=== PATIENT | male | born 1955 | race Hispanic/Latino ===

== ENCOUNTER 2020-12-27 23:44 | Emergency (ER) | payer OTHER, SELFPAY ==
[2020-12-27 23:47] VITALS: BP 146/87; PULSE 97; RESP 18; TEMP 36.3; O2SAT 100
--- NOTE | 2020-12-28 00:28 | ED.GENADULT ---
HPI - General Adult General Chief complaint: Back Pain/Injury Stated complaint: Lower back pain Time Seen by Provider: 12/28/20 00:17 Source: RN notes reviewed History of Present Illness HPI narrative: Patient presents emergency department from home for low back pain. Patient states pain began approximately 10 days ago when he bent over in the shower and felt a twinge in his back states that since that time has had pain in the bilateral lower back that radiates into the bilateral legs he denies any direct trauma or injury he denies any fevers or chills abdominal pain numbness or tingling in the extremities bowel or bladder incontinence or any other symptoms he last took an Aleve at 10 PM tonight and he states he did drive himself to the emergency department. Patient states that this occurred approximately 3 years ago and at that time he improved with diclofenac Related Data Home Medications Medication Instructions Recorded Confirmed lisinopril 25 mg PO DAILY 12/27/20 metformin 500 mg PO BID 12/27/20 Allergies Allergy/AdvReac Type Severity Reaction Status Date / Time No Known Allergies Allergy Verified 12/27/20 23:50 Review of Systems Review of Systems: Narrative: Gen.: Denies fevers or chills ENT: Denies congestion Respiratory: Denies shortness of breath or cough CV: Denies chest pain or palpitations GI: Denies abdominal pain nausea, emesis or diarrhea denies bowel or bladder incontinence Musculoskeletal: See HPI Neuro: Denies numbness, tingling, weakness or focal weakness Skin: Denies rash Except as documented, all other systems reviewed and negative [facility] Past Medical History Medical History (Updated 12/28/20 @ 00:32 by Salvador Grijalva DO) Hypertension Social History Social History (Updated 12/28/20 @ 00:30 by Salvador Grijalva DO) Smoking status: Never smoker Exam Narrative: Exam Narrative: APPEARANCE: No acute distress, nontoxic, resting in bed Eyes: EOMI HEENT: Normocephalic, atraumatic, CV: Regular rate and rhythm without murmur RESPIRATORY: No respiratory distress. Clear to auscultation bilaterally. Abdomen: Soft and nontender, no rebound or guarding MUSCULOSKELETAl: Moves all extremities, no clubbing cyanosis or edema Back: No midline lumbar tenderness to palpation or step-off, tender to palpation over bilateral paravertebral muscles L3-5 , pain increased with forward flexion NEURO: Awake and alert. Following commands, speech normal, no focal deficits, muscle strength 5 out of 5 bilateral lower extremities, bilateral patellar reflex 2+ SKIN:: Warm, dry. Normal Color no rash or lesions Course Course Emergency Course: Discussed with patient results of workup and diagnosis. Discussed need for follow-up with primary care, proper use of medication, and reasons to return to the emergency department. Patient understands and agrees to current treatment plan Vital Signs Vital signs: Vital Signs Temperature 97.3 F L 12/27/20 23:47 Pulse Rate 97 12/27/20 23:47 Respiratory Rate 18 12/27/20 23:47 Blood Pressure 146/87 H 12/27/20 23:47 Pulse Oximetry 100 12/27/20 23:47 Temperature 97.3 F L 12/27/20 23:47 Pulse Rate 97 12/27/20 23:47 Respiratory Rate 18 12/27/20 23:47 Blood Pressure 146/87 H 12/27/20 23:47 Pulse Oximetry 100 12/27/20 23:47 Medical Decision Making MDM Narrative Medical decision making narrative: Patient?s pain is positional and localized to back without signs of cord compression or cauda equina. Normal nuerologic exams. No fever noted and no significant risk factors for osteomyelitis or spinal epidural abscess. No symptoms or signs to suggest pain is referred from abdominal or source. There are no pulsatile masses to exam. Patient ambulates with a steady gait and is felt to be up reasonable candidate for continued outpatient management Vital Signs Vital Signs: Vital Signs Temperature 97.3 F L 12/27/20 23:47 Pulse Rate 97 12/27/20 23
[2020-12-28 00:51] VITALS: BP 144/87; PULSE 92; RESP 16; O2SAT 96
== END 2020-12-28 00:53 | disposition home or self-care (01) ==
PROVIDERS: Emergency Provider Emergency Medicine
DX: M54.5 Low back pain (principal); I10 Essential (primary) hypertension
CPT/HCPCS: 99283

== ENCOUNTER → 2021-01-07 09:30 | Outpatient (CLI) | payer OTHER, SELFPAY ==
--- NOTE | ~2021-01-07 | XR_ITS ---
EXAMINATION: XR lumbar spine 2-3V EXAM DATE: 01/07/2021 10:45 INDICATION: Dorsalgia. Low back pain, right hip pain. Symptoms progressing. TECHNIQUE: Lumber spine frontal, lateral, lateral L5-S1 projections for interpretation. There is no prior study for comparison. FINDINGS: Mild thoracolumbar scoliosis. L5-S1 has moderate disc disease, mild to moderate at the oth er lumbar levels. There is moderate mid and lower lumbar facet arthropathy. Probable few millimeters retrolisthesis L5 on S1. The vertebral bodies are otherwise aligned. Paraspinal soft tissue is unrema rkable. IMPRESSION: 1. Moderate lower lumbar spondylosis. 2. Mild thoracolumbar scoliosis. Reviewed, dictated and finalized at location B. SPECIALIST
--- NOTE | ~2021-01-07 | XR_ITS ---
EXAMINATION: XR hip RT 2V w AP pelvis EXAM DATE: 01/07/2021 10:46 INDICATION: Right hip pain. TECHNIQUE: Right hip frontal standing, crosstable lateral projections for interpretation. Frontal sta nding projection pelvis. There is no prior study for comparison. FINDINGS: Smooth right hip femoral head contour, no radiographic evidence of avascular necrosis. The re is moderate symmetric bilateral hip primary osteoarthritis. There are no acute fractures or disloc ations identified. There is no subcutaneous gas. The soft tissue is unremarkable. There are no ra diopaque foreign bodies. IMPRESSION: Moderate bilateral hip osteoarthritis. Reviewed, dictated and finalized at location B. ING MACHINE OPERATOR
== END ==
PROVIDERS: PCP Family Medicine; Visit Provider Family Medicine
DX: M16.0 Bilateral primary osteoarthritis of hip (principal); M47.896 Other spondylosis, lumbar region; M41.9 Scoliosis, unspecified
CPT/HCPCS: 72100; 73502

== ENCOUNTER 2022-07-22 00:47 | Day surgery (SDC) | payer MEDICARE, OTHER, SELFPAY ==
[2022-07-19 14:38] VITALS: BMI 25.1
[2022-07-22 08:11] VITALS: BP 116/78; PULSE 88; RESP 18; TEMP 36.1; O2SAT 100
[2022-07-22] MEDS: LACTATED RINGERS 1,000 ML 150 ML IV CONT (08:25)
[2022-07-22 08:26] LABS: Glucose Point of Care 144 mg/dl (65-105)
--- NOTE | 2022-07-22 08:38 | WPDANESEPPF ---
Anes - Initial Pre Proc Eval Procedure: Operation Date: 07/22/22 09:00 Proposed Procedures p Screening Colonoscopy - Francisco Meyer MD Date/Time: 07/22/22 08:38 Surgeon: Francisco Meyer MD Pre Op Diagnosis: hx colon polyps Patient Data Age: 66 Gender: M Height: 1.78 m Weight: 78.8 kg Last Vital Signs Temp 97 F L 07/22/22 08:11 Pulse 88 07/22/22 08:11 Resp 18 07/22/22 08:11 BP 116/78 07/22/22 08:11 Pulse Ox 100 07/22/22 08:11 O2 Del Method Room Air 07/22/22 08:11 Allergies Allergy/AdvReac Type Severity Reaction Status Date / Time No Known Allergies Allergy Verified 07/22/22 08:02 Home Medications Medication Instructions Recorded Confirmed Type lisinopril 20 mg tablet See Rx Instructions .Route 04/12/22 07/19/22 Rx .COMPLEX #90 tabs glimepiride 4 mg tablet See Rx Instructions .Route 06/10/22 07/19/22 Rx .COMPLEX #60 tabs metformin 500 mg tablet,extended See Rx Instructions .Route 07/05/22 07/19/22 Rx release 24 hr .COMPLEX #360 tabs ascorbic acid (vitamin C) 500 mg 500 mg PO DAILY 07/19/22 07/19/22 History tablet cholecalciferol (vitamin D3) 25 25 mcg PO DAILY 07/19/22 07/19/22 History mcg (1,000 unit) capsule (Vitamin D3) zinc sulfate 50 mg zinc (220 mg) 50 mg PO DAILY 07/19/22 07/19/22 History capsule Laboratory Tests 07/22/22 08:23 POC Capillary Glucose 144 mg/dl H mg/dl (65-105) Patient hx anesthesia problems: none Family hx anesthesia problems: none Results Review: All pre-operative results and documents have been reviewed as part of the pre-operative evaluation. [facility] Past Medical History Medical History Diabetes Hypertension Surgical History Surgical History History of back surgery 1992 1996 Family History Family History Mother Hypertension Heart disease Sibling Diabetes mellitus Social History Social History Smoking status: Never smoker Second hand tobacco smoke exposure: No Alcohol intake: current Drinks per week: 1 Alcohol use details: beer Substance use: never Substance use type: does not use Living arrangements: with family Additional occupation/education comments: sourcing engineer Gender identity (if verbalized by the patient): Male Spiritual care concerns: No Agree to blood products: Yes Anes - Eval Final PreProcedure Day of Procedure 07/22/22 08:38 Patient weight: normal Heart: regular rate and rhythm Lungs: clear to auscultation Airway: Mallampati scale class II Neurological: alert and oriented Last oral intake: >/= 8 hours ASA classification: II Emergent: no Anesthetic plan: proceed Anesthesia type and monitoring: general GIVS and standard monitoring Results Review: All pre-operative results and documents have been reviewed as part of the pre-operative evaluation. Informed Consent: The patient's anesthetic plan and its attendant risks and benefits were discussed with the patient/family/POA. Questions were solicited and answers provided to the satisfaction of the patient/family/POA.
--- NOTE | 2022-07-22 08:41 | PM.HPGS ---
History of Present Illness History of Present Illness Consent: Risks, benefits, and alternatives have been discussed and questions answered. Patient agrees to proceed with procedure. Chief complaint: hx colon polyps Narrative: Dipak Brown is a 66 year old male here for screening colonoscopy, last one 10 years ago Review of Systems Constitutional: Constitutional: Denies headache(s) and Denies weakness Eyes: Eyes: Denies blurry vision ENT: Reports Normal hearing present, Denies headache(s) and Denies neck pain Cardiovascular: Cardiovascular: Denies chest pain and Denies dyspnea Respiratory: Respiratory: Denies dyspnea Gastrointestinal: Gastrointestinal: Reports no additional gastrointestinal complaints Genitourinary: Genitourinary: Denies dysuria Musculoskeletal: Musculoskeletal: Denies neck pain Integumentary/Breasts: Skin/Breast: Denies dry skin Neurologic: Reports Normal hearing present, Denies headache(s) and Denies weakness Psychiatric: Psychiatric: Denies anxiety Endocrine: Endocrine: Denies change in body appearance Hematologic/Lymphatic: Hematologic/Lymphatic: Denies easy bleeding Allergic/Immunologic: Allergic/Immunologic: Denies urticaria PMFSH Past Medical History Medical History (Updated 07/22/22 @ 08:41 by Francisco Meyer MD) Colon cancer screening Diabetes Hypertension Surgical History Surgical History History of back surgery 1992 1996 Family History Family History Mother Hypertension Heart disease Sibling Diabetes mellitus Social History Social History Smoking status: Never smoker Second hand tobacco smoke exposure: No Alcohol intake: current Drinks per week: 1 Alcohol use details: beer Substance use: never Substance use type: does not use Living arrangements: with family 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 Gender identity (if verbalized by the patient): Male Spiritual care concerns: No Agree to blood products: Yes Meds Home Medications and Allergies Home Medications Medication Instructions Recorded Confirmed Type lisinopril 20 mg tablet See Rx Instructions .Route 04/12/22 07/19/22 Rx .COMPLEX #90 tabs glimepiride 4 mg tablet See Rx Instructions .Route 06/10/22 07/19/22 Rx .COMPLEX #60 tabs metformin 500 mg tablet,extended See Rx Instructions .Route 07/05/22 07/19/22 Rx release 24 hr .COMPLEX #360 tabs ascorbic acid (vitamin C) 500 mg 500 mg PO DAILY 07/19/22 07/19/22 History tablet cholecalciferol (vitamin D3) 25 25 mcg PO DAILY 07/19/22 07/19/22 History mcg (1,000 unit) capsule (Vitamin D3) zinc sulfate 50 mg zinc (220 mg) 50 mg PO DAILY 07/19/22 07/19/22 History capsule Allergies Allergy/AdvReac Type Severity Reaction Status Date / Time No Known Allergies Allergy Verified 07/22/22 08:02 Vital Signs Vital Signs - 24 hr 07/22/22 08:11 Temperature 97 F L Pulse Rate 88 Respiratory Rate 18 Blood Pressure 116/78 Pulse Oximetry 100 Oxygen Delivery Room Air Exam Const: General: comfortable and no acute distress HENMT: General nose exam: Normal nares present Eyes: General: appearance normal, both eyes and all related structures Neck: Neck: no JVD Resp: Auscultation: clear to auscultation bilaterally Cardio: Rate: regular rate Rhythm: regular rhythm GI: Inspection: non-distended GI Palp: Yes Soft to palpation Skin: General skin exam: normal color Neuro: General: gait normal Speech: normal speech Extrem: General: normal to inspection Psych: Mental Status: mental status grossly normal Assessment and Plan Assessment and plan (1) Colon cancer screening: Code(s): Z12.11 - Encounter for screening for malignant neoplasm of colon Status: Acut
[2022-07-22 09:11] VITALS: BP 91/64; PULSE 78; RESP 18; O2SAT 100
[2022-07-22 09:21] VITALS: BP 107/76; PULSE 81; RESP 21; O2SAT 100
[2022-07-22 09:31] VITALS: BP 111/80; PULSE 78; RESP 22; O2SAT 100
== END 2022-07-22 09:44 | disposition home or self-care (01) ==
PROVIDERS: PCP Family Medicine; Visit Provider Internal Medicine Gastroenterology
PROC: 0DJD8ZZ Inspection of Lower Intestinal Tract, Via Natural or Artificial Opening Endoscopic (ICD-10-PCS; CPT 45378; principal; 2022-07-22 09:00)
DX: Z12.11 Encounter for screening for malignant neoplasm of colon (principal); K63.5 Polyp of colon; D12.3 Benign neoplasm of transverse colon; K57.30 Diverticulosis of large intestine without perforation or abscess without bleeding; K64.8 Other hemorrhoids; E11.9 Type 2 diabetes mellitus without complications; I10 Essential (primary) hypertension; Z79.84 Long term (current) use of oral hypoglycemic drugs
CPT/HCPCS: 45385; 82948; 88305; J2704; J7120